=== PATIENT | female | born 1970 | race African-American/Black ===

== ENCOUNTER 2019-12-02 06:15 | Emergency (ER) | payer MEDICAID, OTHER ==
[~2019-12-02] VITALS: Ht 167.6 cm; Wt 72.0 kg
[2019-12-02] MEDS ORDERED: ALBUTEROL 6.7GM HFA INHALER ORI ONE (07:30)
[2019-12-02 09:54] VITALS: BP 136/91
== END 2019-12-02 10:05 | disposition home or self-care (01) ==
LOC: ER 06:42
DX: I10 Essential (primary) hypertension (principal); Z20.828 Contact with and (suspected) exposure to other viral communicable diseases; F17.290 Nicotine dependence, other tobacco product, uncomplicated
CPT/HCPCS: 71045; 94640; 99284; 99406; C9803; U0003